=== PATIENT | female | born 1970 | race Asian ===

== ENCOUNTER 2021-03-30 06:34 | Day surgery (SDC) | payer OTHER ==
[~2021-03-30] VITALS: Ht 152.4 cm; Wt 54.4 kg
[2021-03-30] MEDS ORDERED: diphenhydrAMINE 50 MG/ML VIAL ONE (07:53)
[2021-03-30] MEDS ORDERED: fentaNYL citrate 0.05 MG/ML VIAL ONE ×2 (07:53→07:55)
[2021-03-30] MEDS ORDERED: MIDAZOLAM 5 MG/5 ML VIAL ONE ×2 (07:54→07:56)
[2021-03-30] MEDS ORDERED: MIDAZOLAM 2 MG/2 ML VIAL IVP ONE (11:55)
[2021-03-30] MEDS ORDERED: fentaNYL citrate 0.05 MG/ML VIAL IVP ONE (11:55)
== END 2021-03-30 09:18 | disposition home or self-care (01) ==
LOC: MDS 06:34 → MMU 06:41 → MDS 09:18
PROVIDERS: ATTEND Internal Medicine Gastroenterology
DX: Z12.11 Encounter for screening for malignant neoplasm of colon (principal); K63.5 Polyp of colon; Z80.0 Family history of malignant neoplasm of digestive organs; K57.30 Diverticulosis of large intestine without perforation or abscess without bleeding; K64.8 Other hemorrhoids; I10 Essential (primary) hypertension; Z79.899 Other long term (current) drug therapy
CPT/HCPCS: 45385; J2250; J3010; J1200